=== PATIENT | male | born 1960 | race Caucasian/White ===

== ENCOUNTER → 2022-06-23 | Outpatient (CLI) | payer BC ==
--- NOTE | 2022-06-23 15:09 | Diagnostic Imaging Report ---
PROCEDURE: CT abdomen and pelvis without contrast. TECHNIQUE: Multiple contiguous axial images were obtained through the abdomen and pelvis without the use of intravenous contrast. Auto Exposure Controls were utilized during the CT exam to meet ALARA standards for radiation dose reduction. INDICATION: Microscopic hematuria. History of renal calculus disease and right flank pain. FINDINGS: There are no radiopaque urinary tract calculi. There is no hydroureteronephrosis. There are low-density left renal nodules, consistent with cysts. The adrenals are negative. The liver, gallbladder, bile ducts, spleen, adrenals, and pancreas are all nonacute. The atherosclerotic aorta is nonaneurysmal. There is a fatty umbilical hernia. There is no appendicitis or diverticulitis. No perienteric or pericolonic edema. No ascites, abscess, hematoma, or acute fluid collection. IMPRESSION: No urinary tract obstruction, stone disease, or acute inflammatory process. Dictated by: Dictated on workstation # [id number]
== END ==
LOC: RAD 13:34
PROVIDERS: ATTEND Family Medicine
DX: N20.2 Calculus of kidney with calculus of ureter (principal); M54.9 Dorsalgia, unspecified; I10 Essential (primary) hypertension
CPT/HCPCS: 74176

== ENCOUNTER 2023-03-16 05:30 | Outpatient (CLI) | payer BC ==
[~2023-03-16] VITALS: Ht 172.7 cm; Wt 79.5 kg
[2023-03-16] MEDS ORDERED: AMLO-251 PO (08:07)
== END 2023-03-16 08:35 | disposition home or self-care (01) ==
LOC: PREOP 05:30
PROVIDERS: ATTEND Surgery
DX: Z01.818 Encounter for other preprocedural examination (principal); K80.10 Calculus of gallbladder with chronic cholecystitis without obstruction; K42.9 Umbilical hernia without obstruction or gangrene

== ENCOUNTER 2023-03-23 09:34 | Day surgery (SDC) | payer BC ==
[2023-03-23] VITALS (11 sets, daily range): BP systolic 126–148; BP diastolic 76–99
[~2023-03-23] VITALS: Ht 172.7 cm; Wt 79.5 kg
[~2023-03-23 09:34] MED LIST: AMLO-251 PO
[2023-03-23] MEDS ORDERED: morphine INJ 10 MG/ML 1ML (SYR OR VIAL) ONE (11:38)
[2023-03-23] MEDS ORDERED: SEVOFLURANE (ULTANE) 15 ML INHAL SOLN ONE (11:42)
[2023-03-23] MEDS ORDERED: HYDROmorphone 2 MG/ML VIAL (DILAUDID) IV ONE (11:45)
[2023-03-23] MEDS ORDERED: morphine INJ 10 MG/ML 1ML (SYR OR VIAL) IVP ONE (11:45)
[2023-03-23] MEDS ORDERED: ONDANSETRON 4 MG/2 ML (SDV) Z0FRAN IVP PRN (11:45)
--- NOTE | 2023-03-23 11:55 | Progress Note-Post Operative ---
Post-Operative Progess Note Surgeon (s)/Pet Counselor (s) Surgeon MELINA KIRAN DO Pet Counselor: Tiffani Pre-Operative Diagnosis CHOLELITHIASIS/CHOLECYSTITIS, UMBILICAL HERNIA Post-Operative Diagnosis same incarcerated umbilical hernia Procedure & Operative Findings Date of Procedure 03/23/23 Procedure Performed/Findings PROCEDURE: 1) Laparoscopic cholecystectomy with intraoperative cholangiogram. 2) Open Umbilical herniarraphy - primary repair. COMPLICATIONS: None. PROCEDURE: The patient was taken to the operating suite and was prepped and draped in sterile fashion. A surgical pause was performed. Just superior to the umbilicus, an semilunar 12 mm incision was made. Immediately encountered the incarcerated fat and carefully dissected this out. Dissection was taken down to the fascia, had free up the fat and then able to reduce it and push it into the abdomen. Able to easily see the hernia defect and the fascia was then grasped with a Chris and the abdomen was then entered. An 0 Vicryl suture was placed in a pants over shirt fashion to close this umbilical hernia defect. A Darby trocar was placed, secured and pneumoperitoneum was achieved. A 5mm tro[address] in the subxyphoid and 2 in the right upper quadrant. The gallbladder was then visualized and there were adhesions to it; which indicates previous gallbladder attacks. It was then grasped and elevated in the superior direction. The adhesions were taken down with blunt dissection and with cautery. Then able to grasp at Metz's pouch and pull in the infero-lateral direction. The cystic duct and cystic artery were then dissected out. Clip was placed on the distal portion of the cystic duct which was then partially transected. An arrow catheter was inserted into the duct. The cholangiogram was then performed. No filling defects and contrast made its way into the duodenum. Catheter removed. Clips were placed on proximal portion of the cystic duct and then the duct was then transected. Clips were placed along the proximal and distal portion of the cystic artery which was then transected. Hook cautery was used to dissect the gallbladder from the gallbladder fossa achieving hemostasis. The gallbladder was placed in an Endobag and removed through the 12 mm trocar site. Took a picture as it came out and could see the reduced hernia contents. The abdomen was then reinspected. Copious amounts of irrigation were used to irrigate the abdomen and there were no signs of active bleeding. Hemostasis had been achieved. The 12 mm fascial defect was then closed with the 0 Vicryl suture that had been placed in at the beginning of the case; which also repaired the Umbilical hernia. The abdomen was then desufflated, the trocars were removed. The abdomen was then washed and dried. The skin was then closed using 4-0 Monocryl in a subcuticular fashion. The abdomen was washed and dried and Skin Affix was place over incisions. Patient tolerated the procedure well without any complications and was taken to the recovery room in stable condition. Dr. Nixon assisted on this case helping to make incisions, close incisions, identify anatomy and hold anatomy out of the way. Anesthesia Type GET Estimated Blood Loss Estimated blood loss (mL): scant Specimens/Packing Specimens Removed GB and contents MELINA KIRAN DO March 23, 2023 11:55
[2023-03-23] MEDS ORDERED: ACHD5005 PO (11:56)
--- NOTE | 2023-03-23 11:57 | Discharge Inst-Surgical ---
Discharge Inst-Surgical Depart Medication/Instructions New, Converted or Re-Newed RX: Transmitted to Pharmacy Patient Instructions Follow up Appt: Make appointment for 1 week. [phone] Instructions: No lifting greater than 20 pounds. No strenuous activity. May shower in 24 hours, no tub bath or soaking. Use incentive spirometer at home as directed. No Smoking Skin/Wound Care: May remove bandages in am. You need to leave the Dermabond on incision it will fall off on it's own. Symptoms to Report: Appetite Changes, Extremity Discoloration, Numbness/Tingling, Swelling Increased, Bleeding Excessive, Eyesight Changes, Pain Increased, Urine Color Change, Constipation(Persistent), Fever over 101 degree F, Pain/Pressure in chest, Urinating Difficulty, Cough Up/Vomit Blood, Heart Beat Irreg/Pounding, Pain/Pressure in jaw, Cramps in feet or legs, Lightheadedness, Pain/Pressure in shoulder, Diarrhea(Persistent), Memory Changes Suddenly, Questions/Concerns, Weight gain consecutive days, Dizziness/Fainting, Nausea/Vomiting, Shortness of Breath, Weight gain over 2 pounds If questions or concerns contact your physician Or seek help at emergency department. Activity Activity as Tolerated: Yes Activity Instructions: Avoid Stress to Incision Driving Instructions: No Driving/Refer to Diet Discharge Diet: Avoid Fatty Foods, Low Fat/Low Cholesterol Diet After 24 Hours: Clear Liquid if Nauseous If Any Problems/Questions/Issu: Contact Your Physician, Go to Emergency Room Skin/Wound Care Infection Signs and Symptoms: Increased Redness, Foul Odor of Wound, Increased Drainage, Skin Itchy or Has a Rash, Increased Swelling, Temperature Above 101 F Wound Care Comment: heating pad to shoulder or neck tonight for pain Bathing Instructions: Shower Stitches/[place]/Dermabond Dis: Dermabond Ice Pack: Ice On and Off Site MELINA KIRAN DO March 23, 2023 11:57
[2023-03-23] MEDS ORDERED: LACTATED RINGERS 1,000 ML IV PRN (12:00)
[2023-03-23] MEDS ORDERED: ceFAZolin INJECTION 2,000 MG in NS (IVPB) 50 ML IV ONE (12:00)
--- NOTE | 2023-03-23 12:16 | Anesthesia-General Post-Op ---
General Patient Condition Mental Status/LOC: Same as Preop Cardiovascular: Satisfactory Nausea/Vomiting: Absent Respiratory: Satisfactory Pain: Controlled Complications: Absent Post Op Complications Complications None Follow Up Care/Instructions Patient Instructions None needed. Anesthesia/Patient Condition Patient Condition Patient is awake in PACU and doing well, no complaints, stable vital signs, no apparent adverse anesthesia problems. No complications reported per nursing. AMMY REYNA DO March 23, 2023 12:16
[2023-03-23] MEDS ORDERED: BUP/EPI 0.5% 1:200,000 (SENSORCAINE) 30 ML VIAL INJ ONE (13:15)
[2023-03-23] MEDS ORDERED: HYDROcodone/APAP 5 MG/325 MG (LORTAB) TAB ONE (13:28)
[2023-03-23] MEDS ORDERED: HYDROcodone/APAP 5 MG/325 MG (LORTAB) TAB PO ONE (13:45)
--- NOTE | 2023-03-23 17:29 | Diagnostic Imaging Report ---
CLINICAL INDICATION: Patient status post lap cholecystectomy with cholangiogram. EXAM: There are a total of 30 intraoperative images of the right upper abdomen. COMPARISON: CT scan of the abdomen and pelvis with contrast dated 06/23/2022. FINDINGS AND IMPRESSION: Antegrade cholangiogram is seen with contrast spillage into the duodenum. Please see clinician's report for more detail. Fluoroscopy was provided for clinician and a total of 6.7 seconds was used. Dictated by: Dictated on workstation # [id number]
== END 2023-03-23 13:50 ==
LOC: SDC 09:34
PROVIDERS: ATTEND Surgery
DX: K80.10 Calculus of gallbladder with chronic cholecystitis without obstruction (principal); K42.0 Umbilical hernia with obstruction, without gangrene; F17.210 Nicotine dependence, cigarettes, uncomplicated; Z86.16 Personal history of COVID-19
CPT/HCPCS: 76000; 87081; 88304